=== PATIENT | female | born 1975 | race Two or more races ===

== ENCOUNTER 2024-01-16 08:17 | Inpatient (IN) | payer OTHER ==
[2024-01-10 09:50] LABS: URINE APPEARANCE Clear; URINE BILIRRUBIN Negative (NEGATIVE); URINE BLOOD Large; URINE COLOR Yellow; URINE GLUCOSE Negative (NEGATIVE); URINE KETONE Negative (NEGATIVE); URINE LEUKOCYTE Small; URINE NITRATE Negative; URINE PROTEIN Negative (NEGATIVE); URINE UROBILINOGEN 0.2 E.U./dl
[2024-01-10 09:53] LABS: URINE BACTERIA 569.4 uL (0.0-1933); URINE EPITHELIAL CELLS 14.9 uL (0.0-38.8); URINE RBC 1927.2 uL (0.0-20.8); URINE WBC 98.3 uL (0.0-23.2)
[2024-01-10 09:55] LABS: HEMATOCRIT 39.3 % (36.0-45.00); HEMOGLOBIN 13.4 g/dL (12.0-15.00); MEAN CELL VOLUME 86.1 fL (80.00-100.00); MEAN CORPUSCULAR HEMOGLOBIN 29.4 pg (27.00-32.0); MEAN CORPUSCULAR HGB CONC 34.1 g/dl (32.0-36.0); PLATELET COUNT 226 K/uL (150-450); RED BLOOD COUNT 4.56 M/uL (4.00-6.00); RED CELL DISTRIBUTION WIDTH 15.1 % (11.5-14.5)
[2024-01-10 10:06] LABS: INR 0.98
[2024-01-10 10:11] LABS: PROTHROMBIN TIME 10.3 SECONDS (9.0-11.5)
[2024-01-10 10:20] LABS: ALBUMIN 3.8 gm/dL (3.4-5.0); BILIRUBIN TOTAL 0.48 mg/dL (0.3-1.2); CALCIUM 9.1 mg/dL (8.5-10.1); CREATININE SERUM 0.58 mg/dL (0.55-1.02); GFR 111.92; GLOBULINA 3.7 G/DL (2.4-3.5); POTASSIUM 4.16 mEq/L (3.5-5.1); TOTAL PROTEIN 7.5 gm/dL (6.4-8.2)
[~2024-01-16 08:17] MED LIST: CITRACAL + D M1 EACH; TENORMIN50 M1; [UNRECOGNIZED DRUG - OTHER]
[2024-01-16] MEDS ORDERED: CEFAZOLIN SODIUM 1,000 MG VIAL ONE (13:18)
[2024-01-16] MEDS ORDERED: DEXAMETHASONE SODIUM PHOSPHATE 4 MG/ML VIAL ONE (13:22)
[2024-01-16] MEDS ORDERED: ENALAPRILAT DIHYDRATE 1.25 MG/ML VIAL IV PRN (19:15)
[2024-01-16] MEDS ORDERED: ONDANSETRON HCL 2 MG/ML VIAL IV PRN (19:15)
[2024-01-16] MEDS ORDERED: PANTOPRAZOLE SODIUM 40 MG/VIAL VIAL IV PUSH SCH (21:00)
[2024-01-16] MEDS ORDERED: Calcium Carbonate 1 TAB TABLET PO SCH (21:00)
[2024-01-16] MEDS ORDERED: ACETAMINOPHEN 500 MG GEL..CAP PO SCH (21:00)
[2024-01-16] MEDS ORDERED: PANTOPRAZOLE SODIUM 40 MG/VIAL VIAL ONE (21:07)
[2024-01-17] MEDS ORDERED: TRAMADOL HCL 50 MG TABLET PO SCH
[2024-01-17] MEDS ORDERED: LEVOTHYROXINE SODIUM 150 MCG TABLET PO SCH (09:00)
[2024-01-17] MEDS ORDERED: ATENOLOL 50 MG TABLET PO SCH (09:00)
[2024-01-17] MEDS ORDERED: CALCITRIOL 0.5 MCG CAPSULE PO SCH (09:00)
[2024-01-17] MEDS ORDERED: Calcium Carbonate 1 TAB TABLET PO NR (09:42)
[2024-01-17] MEDS ORDERED: CYCLOBENZAPRINE HCL 5 MG TABLET PO SCH (17:00)
== END 2024-01-17 13:19 | disposition home or self-care (01) | DRG 627 ==
LOC: CIR.AMB 08:17 → SURG 20:06 → SURH 20:06 → SURG 20:12
PROVIDERS: ADMIT Otolaryngology; ATTEND Otolaryngology
PROC: 0GTK0ZZ Resection of Thyroid Gland, Open Approach (ICD-10-PCS; principal; 2024-01-16 11:30)
DX: E05.00 Thyrotoxicosis with diffuse goiter without thyrotoxic crisis or storm (principal); Z20.822 Contact with and (suspected) exposure to COVID-19